=== PATIENT | male | born 1995 | race Caucasian/White ===

== ENCOUNTER 2022-08-28 01:39 | Emergency (ER) | payer OTHER ==
[2022-08-28] MEDS ORDERED: FAMOTIDINE 10 MG TABLET PO ONE (02:08)
[2022-08-28] MEDS ORDERED: ACETAMINOPHEN 500 MG TABLET (FP) PO ONE (02:08)
[2022-08-28] MEDS ORDERED: MAG HYDROX/AL HYDROX/SIMETH -MYLANTA- ORAL SUSPENSION PO ONE (02:08)
[2022-08-28] MEDS ORDERED: ACETAMINOPHEN 325 MG TABLET (FP) ONE (02:11)
[2022-08-28] MEDS ORDERED: FAMOTIDINE 20 MG TABLET ONE (02:11)
[2022-08-28] MEDS ORDERED: MAG HYDROX/AL HYDROX/SIMETH 30 ML UNIT-DOSE CUP ONE (02:11)
[2022-08-28 02:28] LABS: BASO % 0.6 % (0-2.0); EOS % 9.2 % (0-4.5); HEMATOCRIT 41.5 % (35.4-49); HEMOGLOBIN 14.3 GM/dL (11.7-16.9); LYMPH % 33.8 % (8-40); MCH 28.9 pg (25.7-33.7); MCHC 34.4 g/dl (32.0-35.9); MEAN PLT VOLUME 7.5 fl (7.5-11.1); MONO % 6.2 % (3.8-10.2); NEUT % 50.2 % (42.8-82.8); PLATELET COUNT 318 10^3/uL (134-434); RBC 4.94 M/mm3 (4.00-5.60); RDW 13.1 % (11.9-15.9); WHITE BLOOD COUNT 7.2 K/mm3 (4.0-10.0)
[2022-08-28 02:53] LABS: MAGNESIUM 2.1 mg/dL (1.8-2.4)
[2022-08-28 02:56] LABS: CREATININE 1.1 mg/dL (0.55-1.3)
[2022-08-28 02:57] LABS: BILIRUBIN,TOTAL 0.4 mg/dL (0.2-1); TOT PROT 6.9 g/dl (6.4-8.2)
[2022-08-28 05:24] VITALS: BP 102/57; PULSE 60; RESP 20; TEMP 98.3; BMI 29.8
== END 2022-08-28 04:46 | disposition home or self-care (01) ==
LOC: JER 01:39
DX: R10.13 Epigastric pain (principal)
CPT/HCPCS: 36415; 80053; 83690; 83735; 85025; 99284-25